=== PATIENT | female | born 2000 | race Caucasian/White ===

== ENCOUNTER 2023-09-04 21:07 | Emergency (ER) | payer MEDICAID ==
[~2023-09-04] VITALS: Ht 157.5 cm; Wt 51.0 kg
[2023-09-04 21:13] VITALS: BP 131/84; TEMP 98.1; O2SAT 98
[2023-09-04 21:22] VITALS: PULSE 115; RESP 20
[2023-09-04] MEDS ORDERED: IBUPROFEN 600MG TABLET PO STA (21:44)
[2023-09-04 23:02] LABS: CLARITY URINE CLEAR (CLEAR); COLOR URINE YELLOW (YELLOW); GLUCOSE URINE NEGATIVE (NEGATIVE); KETONES URINE NEGATIVE (NEGATIVE); LEUKOCYTE ESTERASE URINE 2+ (NEGATIVE); NITRITE URINE NEGATIVE (NEGATIVE); OCCULT BLOOD URINE NEGATIVE (NEGATIVE); PH URINE 6.5 (4.5-8.0); PROTEIN URINE NEGATIVE (NEGATIVE); SPECIFIC GRAVITY URINE 1.017 (1.005-1.030); UROBILINOGEN URINE 0.2 E.U./dL (0.2-1.0)
[2023-09-04 23:23] LABS: SQUAMOUS EPITHELIAL CELL URINE 1+ /lpf (RARE/1+)
[2023-09-04 23:24] LABS: BACTERIA URINE 1+; RBC URINE 0-2 /hpf (0-2); YEAST URINE NONE SEEN
[2023-09-04] MEDS ORDERED: LEVO-65 MT (23:35)
[2023-09-05] MEDS ORDERED: IBUPROFEN 600MG TABLET PO NR (00:30)
== END 2023-09-05 00:29 | disposition home or self-care (01) ==
LOC: ER 21:07
DX: N39.0 Urinary tract infection, site not specified (principal); E11.9 Type 2 diabetes mellitus without complications; Z88.0 Allergy status to penicillin
CPT/HCPCS: 81003; 81025; 99283